=== PATIENT | male | born 1975 | race Caucasian/White ===

== ENCOUNTER 2024-05-30 11:44 | Emergency (ER) | payer SELFPAY ==
[2024-05-30 11:56] VITALS: BP 182/109; PULSE 83
[2024-05-30 12:58] LABS: HEMATOCRIT 50.9 % (42.0-52.0); HEMOGLOBIN 18.3 g/dL (14.0-18.0); IMMATURE GRAN ABSOLUTE AUTO 0.03 K/uL (0.00-0.05); IMMATURE GRAN PERCENT AUTO 0.3 % (0.0-0.4); LYMPHOCYTES ABSOLUTE AUTO 2.21 K/uL (1.00-4.80); LYMPHOCYTES PERCENT AUTO 22.3 % (24.0-44.0); MEAN CORPUSCULAR HEMOGLOBIN 31.7 pg (28.0-32.0); MEAN CORPUSCULAR VOLUME 88.1 fL (83.0-99.0); MEAN PLATELET VOLUME 9.5 fL (9.4-12.4); MONOCYTES ABSOLUTE AUTO 0.75 K/uL (0.00-0.80); MONOCYTES PERCENT AUTO 7.6 % (0.0-8.0); NEUTROPHILS ABSOLUTE AUTO 6.63 K/uL (1.80-7.70); NEUTROPHILS PERCENT AUTO 66.8 % (41.0-71.0); PLATELET COUNT,PLT 395 K/uL (150-400); RED BLOOD CELL COUNT 5.78 M/uL (4.52-5.90); WHITE BLOOD CELL COUNT,WBC 9.92 K/uL (3.9-11.3)
[2024-05-30 13:00] LABS: BASE EXCESS VENOUS 3.2 (-2.0-3.0); BICARBONATE,VENOUS 30 mEQ/mL (22-28); PCO2 VENOUS 52 mmHG (41-51); PH,VENOUS 7.37 (7.31-7.41)
[2024-05-30 13:01] LABS: PO2 VENOUS < 30 mmHG (35-45)
[2024-05-30 13:31] LABS: A/G RATIO 1.3 (0.9-1.6); ALANINE AMINOTRANSFERASE,ALT 40 IU/L (14-63); ALBUMIN 4.4 g/dL (3.4-5.0); ALKALINE PHOSPHATASE 108 U/L (46-116); ASPARTATE AMNIOTRANSFERASE,AST 15 IU/L (15-37); BILIRUBIN TOTAL 0.6 mg/dL (0.2-1.0); BLOOD UREA NITROGEN,BUN 17 mg/dL (7.0-18.0); CALCIUM 9.8 mg/dL (8.5-10.1); CARBON DIOXIDE,CO2 30.8 mmol/L (21.0-32.0); CHLORIDE,CL 99 mmol/L (98-107); CREATININE 0.8 mg/dL (0.8-1.3); GLUCOSE RANDOM 311 mg/dL (74-106); LIPASE 16 U/L (16-77); POTASSIUM,K 4.4 mmol/L (3.5-5.1); PROTEIN TOTAL,TP 7.9 g/dL (6.4-8.2); SODIUM,NA 135 mmol/L (136-148)
[2024-05-30 13:46] LABS: ESTIMATED GFR 109 mL/min (>60)
== END 2024-05-30 14:33 ==
LOC: MW.ED 11:44
DX: Z02.89 Encounter for other administrative examinations (principal); E11.69 Type 2 diabetes mellitus with other specified complication; R03.0 Elevated blood-pressure reading, without diagnosis of hypertension; F17.210 Nicotine dependence, cigarettes, uncomplicated; Z90.49 Acquired absence of other specified parts of digestive tract; Z88.0 Allergy status to penicillin; Z79.4 Long term (current) use of insulin; Z79.899 Other long term (current) drug therapy; Z75.8 Other problems related to medical facilities and other health care
CPT/HCPCS: 36415; 71046; 71046-26; 80053; 82009; 82803; 82947; 83690; 83735; 84100; 84484; 85025; 93005; 99284